=== PATIENT | female | born 1980 | race Caucasian/White ===

== ENCOUNTER 2018-12-06 14:37 | Emergency (ER) | payer OTHER ==
[~2018-12-06] VITALS: Ht 165.1 cm; Wt 51.7 kg
--- NOTE | 2018-12-06 14:53 | NUR ---
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 TETANUS 3YRS AGO. PT IS AOX4, AMB, VSS, RR EVEN AND UNLABORED. SKIN WARM AND DRY. DENIES SOB, DIZZINESS, WEAKNESS, N/V. FAMILY MEMBER AT BEDSIDE. READY FOR EVAL.
[2018-12-06] MEDS ORDERED: LIDOCAINE 1% INJ 50 ML MDV IJ ONE ×2 (15:00→15:04)
[2018-12-06] MEDS ORDERED: LIDOCAINE HCL/MPF 1% 30 ML VIAL IJ ONE (15:15)
--- NOTE | 2018-12-06 16:00 | NUR ---
XRAY AT BEDSIDE
--- NOTE | 2018-12-06 16:18 | NUR ---
SLIP CASTER STUDENT AT BEDSIDE FOR SUTURE APPLICATION UNDER DIRECTION OF ANDRAE CHANG
[2018-12-06] MEDS ORDERED: IBUPROFEN 600 MG TABLET PO ONE ×2 (16:58→17:00)
--- NOTE | 2018-12-06 16:58 | NUR ---
[employer] SECURITY ARCHITECT AT BEDSIDE FOR WOUND CARE AND SPLINT APPLICATION
[2018-12-06] MEDS ORDERED: GELATIN SPONGE,ABSORBABLE 1 SPONGE SPONGE TP ONE (17:05)
--- NOTE | 2018-12-06 17:14 | NUR ---
Patient discharged to home in stable condition. Written and verbal after care instructions given. Patient verbalizes understanding of instruction.
[2018-12-06 17:43] VITALS: BP 137/76
== END 2018-12-06 17:14 | disposition home or self-care (01) ==
LOC: ER 14:39
DX: S61.211A Laceration without foreign body of left index finger without damage to nail, initial encounter (principal); W26.9XXA Contact with unspecified sharp object(s), initial encounter; Y93.89 Activity, other specified; Y92.89 Other specified places as the place of occurrence of the external cause; Y99.8 Other external cause status
CPT/HCPCS: 12002; 73140; 99283; A4606; A6402 ×2; J3490; Z7610

== ENCOUNTER 2018-12-08 10:13 | Emergency (ER) | payer OTHER ==
[~2018-12-08] VITALS: Ht 167.6 cm; Wt 56.7 kg
[2018-12-08 10:17] VITALS: BP 134/77
== END 2018-12-08 11:06 | disposition home or self-care (01) ==
LOC: ER 10:14
DX: S61.211D Laceration without foreign body of left index finger without damage to nail, subsequent encounter (principal); X58.XXXD Exposure to other specified factors, subsequent encounter
CPT/HCPCS: 99282; A4606

== ENCOUNTER 2018-12-15 12:52 | Emergency (ER) | payer OTHER ==
[~2018-12-15] VITALS: Ht 167.6 cm; Wt 54.4 kg
[2018-12-15 13:03] VITALS: BP 144/74
--- NOTE | 2018-12-15 13:45 | NUR ---
Patient discharged to home in stable condition. Written and verbal after care instructions given. Patient verbalizes understanding of instruction.
== END 2018-12-15 13:45 | disposition home or self-care (01) ==
LOC: ER 12:52
DX: L03.012 Cellulitis of left finger (principal)
CPT/HCPCS: 99283; A4606; A6402